=== PATIENT | female | born 2000 | race Caucasian/White ===

== ENCOUNTER → 2021-05-22 23:30 | Observation (INO) ==
[2021-05-22 22:59] LABS: Amorphous Sediment,Urine Few per hpf (None-Few); Bacteria,Urine Few per hpf (None-Few); Bilirubin,Urine Negative (Negative); Blood,Urine Trace (Negative); Calcium Oxalate Crystals,Urine Present per hpf; Clarity,Urine Turbid (Clear); Color,Urine Yellow (Yellow); Glucose,Urine (UA) Normal (Normal); Ketones,Urine Negative (Negative); Leukocyte Esterase,Urine Large (Negative); Mucus,Urine Few per lpf (None-Few); Nitrite,Urine Positive (Negative); PH,Urine 6.5 pH Units (5.0-8.0); Protein,Urine Trace mg/dL (Neg-Trace); RBC,Urine 30-50 per hpf (0-3); Squamous Epithelial Cell,Urine Few per hpf (None-Few); Urobilinogen,Urine Normal (Normal); WBC,Urine TNTC per hpf (0-3)
== END | disposition home or self-care (01) ==
LOC: 1NENULAB
PROVIDERS: ADMIT Obstetrics & Gynecology; ATTEND Obstetrics & Gynecology

== ENCOUNTER 2021-06-11 09:26 | Inpatient (IN) ==
[2021-06-11] MEDS ORDERED: Metoclopramide 10 MG/2 ML VIAL IVP ONE (09:50)
[2021-06-11] MEDS ORDERED: Azithromycin 500 MG in 0.9 % Sodium Chloride 250 ML IVPB PRN (09:50)
[2021-06-11] MEDS ORDERED: OXYTOCIN/RINGERS LACTATE 10 UNIT/166.6 ML BAG IVC ONE (09:50)
[2021-06-11] MEDS ORDERED: CeFAZolin 2,000 MG/120 ML BAG IVPB ONE (09:50)
[2021-06-11] MEDS ORDERED: Famotidine 20 MG/2 ML VIAL IVP ONE (09:50)
[2021-06-11] MEDS ORDERED: Ringers Solution, Lactated 1,000 ML IVC SCH (10:00)
[2021-06-11] MEDS ORDERED: Oxytocin 30 UNIT/503 ML BAG IVC SCH ×3 (10:00→17:55)
[2021-06-11 10:26] LABS: Basophils % 0.2 %; Eosinophils % 0.4 %; Hematocrit 34.7 % (35.3-44.9); Hemoglobin 11.1 g/dL (11.5-15.4); Immature Granulocytes % 0.7 % (0-4); Lymphocytes # 1.3 K/mcL (0.6-4.6); Lymphocytes % 15.7 %; Mean Corpuscular Volume 84.4 fL (83.0-100.0); Mean Platelet Volume 11.9 fL (9.4-12.4); Monocytes # 0.7 K/mcL (0.0-1.3); Monocytes % 8.1 %; Platelet Count 134 K/mcL (140-400); Red Blood Count 4.11 M/mcL (3.82-4.97); Red Cell Distribution Width 18.2 % (11.5-14.5); Segmented Neutrophils % 74.9 %
[2021-06-11 10:35] LABS: Amphetamine Screen,Urine Negative ng/mL (Cutoff=1000); Barbiturate Screen,Urine Negative ng/mL (Cutoff=200); Benzodiazepines Screen,Urine Negative ng/mL (Cutoff=200); Cannabinoid Screen,Urine Negative ng/mL (Cutoff = 50); Cocaine Screen,Urine Negative ng/mL (Cutoff= 300); Opiate Screen,Urine Negative ng/mL (Cutoff=300); Phencyclidine Screen,Urine Negative ng/mL (Cutoff=25)
[2021-06-11] MEDS: Ringers Solution, Lactated 1,000 ML IVC ONE ×2 (10:45→11:51)
[2021-06-11 10:48] LABS: Influenza A PCR Negative (Negative); Influenza B PCR Negative (Negative); Resp. Syncytial Virus PCR Negative (Negative); SARS-CoV-2 by PCR (In House) Negative (Negative)
[2021-06-11] MEDS ORDERED: *HR* OxyCODONE Immed Rel 5 MG TABLET PO PRN (13:20)
[2021-06-11] MEDS ORDERED: Acetaminophen IV 1,000 MG/100 ML BAG IVPB PRN (13:20)
[2021-06-11] MEDS ORDERED: *HR* FentaNYL (PF) 100 MCG/2 ML VIAL IVP PRN (13:20)
[2021-06-11] MEDS ORDERED: *HR* Morphine Sulfate/PF 10 MG/10 ML AMPUL ONE (13:27)
[2021-06-11] MEDS ORDERED: Ondansetron 4 MG/2 ML VIAL ONE (13:36)
[2021-06-11] MEDS ORDERED: Ringers Solution, Lactated 1,000 ML ONE (14:26)
[2021-06-11] MEDS ORDERED: Ketorolac 30 MG/ML VIAL ONE (15:06)
[2021-06-11] MEDS ORDERED: Acetaminophen IV 1,000 MG/100 ML BAG IVPB ONE (15:06)
[2021-06-11] MEDS ORDERED: Naloxone 0.4 MG/ML INJ IVP PRN ×2 (17:55)
[2021-06-11] MEDS ORDERED: *HR* Nalbuphine 10 MG/ML AMPUL IV PRN (17:55)
[2021-06-11] MEDS ORDERED: Simethicone 80 MG TAB.CHEW PO PRN ×2 (17:55)
[2021-06-11] MEDS ORDERED: Measles/Mumps/Rubella Vacc 0.5 ML VIAL SQ ONE (17:55)
[2021-06-11] MEDS ORDERED: Ondansetron 4 MG/2 ML VIAL IVP PRN ×2 (17:55)
[2021-06-11] MEDS ORDERED: Acetaminophen 325 MG TABLET PO SCH (17:55)
[2021-06-11] MEDS ORDERED: Rho Immune Globulin 1,500 UNIT SYRINGE IM ONE (17:55)
[2021-06-11] MEDS ORDERED: Ibuprofen 600 MG TABLET PO SCH (18:15)
[2021-06-11] MEDS: Ibuprofen 600 MG TABLET PO SCH (18:26)
[2021-06-11] MEDS: Acetaminophen 325 MG TABLET PO SCH (18:26)
[2021-06-12] MEDS: Ibuprofen 600 MG TABLET PO SCH ×4 (00:20→22:07)
[2021-06-12] MEDS: Acetaminophen 325 MG TABLET PO SCH ×3 (00:21→19:59)
[2021-06-12] MEDS: *HR* Enoxaparin 40 MG/0.4 ML SYRINGE SQ SCH ×2 (02:50→15:28)
[2021-06-12 05:25] LABS: Basophils % 0.2 %; Eosinophils % 0.3 %; Hematocrit 30.6 % (35.3-44.9); Hemoglobin 9.6 g/dL (11.5-15.4); Immature Granulocytes % 0.6 % (0-4); Lymphocytes % 12.1 %; Mean Corpuscular HGB Conc 31.4 g/dL (31.6-35.5); Mean Corpuscular Hemoglobin 27.1 pg (28.0-33.3); Mean Corpuscular Volume 86.4 fL (83.0-100.0); Mean Platelet Volume 13.6 fL (9.4-12.4); Monocytes # 0.7 K/mcL (0.0-1.3); Monocytes % 7.1 %; Neutrophils # 8.2 K/mcL (1.6-8.9); Platelet Count 129 K/mcL (140-400); Red Blood Count 3.54 M/mcL (3.82-4.97); Red Cell Distribution Width 18.2 % (11.5-14.5); Segmented Neutrophils % 79.7 %; White Blood Count 10.3 K/mcL (4.3-11.1)
[2021-06-12 05:27] LABS: Lymphocytes # 1.3 K/mcL (0.6-4.6)
[2021-06-12] MEDS: *HR* OxyCODONE Immed Rel 5 MG TABLET PO PRN ×3 (08:57→19:59)
[2021-06-12] MEDS: Prenatal Vit/FA 1 EACH TABLET PO SCH (08:58)
[2021-06-12] MEDS ORDERED: Prenatal Vit/FA 1 EACH TABLET PO SCH (09:00)
[2021-06-12 16:28] VITALS: O2SAT 98
[2021-06-13] MEDS: *HR* OxyCODONE Immed Rel 5 MG TABLET PO PRN (00:55)
[2021-06-13] MEDS: Ibuprofen 600 MG TABLET PO SCH ×2 (03:13→08:25)
[2021-06-13] MEDS: Acetaminophen 325 MG TABLET PO SCH ×2 (03:13→08:25)
[2021-06-13] MEDS: *HR* Enoxaparin 40 MG/0.4 ML SYRINGE SQ SCH (03:14)
[2021-06-13 07:04] VITALS: BP 118/65; PULSE 72; TEMP 98.1
[2021-06-13] MEDS: Prenatal Vit/FA 1 EACH TABLET PO SCH (08:25)
== END 2021-06-13 10:30 | disposition home or self-care (01) | DRG 540 ==
LOC: 1NENULAB 09:26 → 1NENUOBS 17:26
PROVIDERS: ADMIT Obstetrics & Gynecology; ATTEND Obstetrics & Gynecology